=== PATIENT | female | born 1970 | race Caucasian/White ===

== ENCOUNTER → 2017-05-14 | Outpatient (CLI) | payer BC, OTHER ==
--- NOTE | 2017-05-15 02:40 | REP ---
Clinical: Pain. Technique: AP, lateral, bilateral oblique views of the right ankle. Findings: Age-related changes include periarticular / subchondral sclerosis and subtle cortical irregularity at the medial and lateral malleoli. No acute fracture dislocation. Ankle mortise intact. Lateral view demonstrates large calcaneal heal spur. Impression: Age-related changes noted. Signed by Jed Jimenez MD 05/15/2017 02:32 A
--- NOTE | 2017-05-15 02:45 | REP ---
Clinical: Pain. Technique: AP, lateral, bilateral oblique views of the right foot. Findings: Mild age-related findings are appreciated without significant, overt osteoarthritic degenerative changes noted. Lateral view demonstrates moderate calcaneal heal spur. Impression: Age-related changes. Signed by Jed Jimenez MD 05/15/2017 02:37 A
== END ==
LOC: M WUC 17:09
PROVIDERS: ATTEND Physician Assistant
DX: M19.071 Primary osteoarthritis, right ankle and foot (principal)